=== PATIENT | female | born 1955 | race Caucasian/White ===

== ENCOUNTER 2018-03-31 12:25 | Outpatient (CLI) | payer OTHER ==
[2018-03-31 13:52] LABS: #Basophils 0.1 thou/uL (0.0-0.2); #Eosinphils 0.2 thou/uL (0.0-0.7); #Lymphocytes 3.2 thou/uL (1.20-3.40); #Neutrophils 4.8 thou/uL (1.40-6.50); %Basophils 0.9 % (0.0-1.0); %Eosinophils 2.2 % (0.0-10.0); %Lymphocytes 34.8 % (21.0-51.0); %Monocytes 10.3 % (0.0-10.0); %Neutrophils 51.9 % (42.0-75.0); Hemoglobin 14.1 g/dL (12.0-16.0); Mean Corpuscular HGB CONC 33.2 g/dL (32.0-36.0); Mean Corpuscular Volume 87.4 fL (78.0-98.0); Platelet Count 262 thou/uL (130-400); RBC Distribution Width 11.9 % (11.5-14.5); Red Blood Cell (RBC) Count 4.86 mill/uL (4.20-5.40); White Blood Cell (WBC) Count 9.3 thou/uL (4.8-10.8)
--- NOTE | 2018-03-31 14:14 | RAD ---
2 VIEWS CHEST: Date: 03/31/18 COMPARISON: None. HISTORY: Preoperative radiograph. FINDINGS: Two views of the chest show normal sized cardiomediastinal silhouette. There is no evidence of consol idation, mass, or pleural effusion. The bones are unremarkable. IMPRESSION: No evidence of acute cardiopulmonary disease. POS: [facility]
[2018-03-31 14:16] LABS: Anion Gap 12 mmol/L (10-20); BUN (Urea Nitrogen) 13 mg/dL (9.8-20.1); Calc. Creatinine Clearance 0 mL/min (70-130); Calcium 10.3 mg/dL (7.8-10.44); Carbon Dioxide 25 mmol/L (23-31); Chloride 109 mmol/L (98-107); Estimated GFR-MDRD 86; Glucose 132 mg/dL (80-115); Potassium 4.1 mmol/L (3.5-5.1); Sodium 142 mmol/L (136-145)
== END 2018-03-31 12:26 | disposition home or self-care (01) ==
LOC: LABBT 12:25
PROVIDERS: ATTEND Specialist
DX: Z01.818 Encounter for other preprocedural examination (principal); K42.9 Umbilical hernia without obstruction or gangrene
CPT/HCPCS: 71046; 80048; 85025; 93005; 93010

== ENCOUNTER 2018-04-06 07:41 | Day surgery (SDC) | payer OTHER ==
[2018-03-31 13:04] VITALS: BMI 32.7
[2018-04-06] MEDS ORDERED: Ketorolac Tromethamine 30 MG/ML VIAL ONE (08:12)
[2018-04-06] MEDS ORDERED: CEFAZOLIN/Water 2 GM/20 ML SYRINGE ONE (08:12)
[2018-04-06] MEDS ORDERED: Midazolam HCl 2 mg/2 ml Vial ONE (11:16)
[2018-04-06] MEDS ORDERED: Bupivacaine/Epinephrine 0.25% 30 ML VIAL ONE (11:18)
[2018-04-06] MEDS ORDERED: Fentanyl 100 MCG/2 ML VIAL ONE ×2 (11:25→12:45)
[2018-04-06] MEDS ORDERED: Famotidine/PF 20 mg/2ml Vial ONE (11:25)
[2018-04-06] MEDS ORDERED: PROPOFOL 200 MG/20 ML VIAL ONE (13:40)
[2018-04-06] MEDS ORDERED: Ondansetron HCl/PF 4 MG/2 ML Vial ONE (13:40)
[2018-04-06] MEDS ORDERED: Glycopyrrolate 0.2 MG/ML 5 ML SYRINGE ONE (13:40)
[2018-04-06] MEDS ORDERED: Metoclopramide HCl 10 MG/2 ML VIAL ONE (13:40)
[2018-04-06] MEDS ORDERED: Succinylcholine Chloride 20 MG/ML 10 ml SYRINGE FS ONE (13:40)
[2018-04-06] MEDS ORDERED: Lidocaine 1% PF 5 ML VIAL ONE (13:40)
[2018-04-06] MEDS ORDERED: HYDROcodone/Acetaminophen 5/325 mg Tablet ONE (14:59)
--- NOTE | 2018-04-07 04:02 | OP ---
DATE OF OPERATION: 04/06/2018 PREOPERATIVE DIAGNOSIS: Umbilical hernia. POSTOPERATIVE DIAGNOSIS: Umbilical hernia. OPERATION PERFORMED: Umbilical hernia repair with 4 cm Ventralex mesh patch. SURGEON: Mark Nicholas M.D. ANESTHESIA: General endotracheal. INDICATIONS: The patient is a 62-year-old white female. She presents with obvious visible umbilical hernia. This is reducible. She is taken to the operating room at this time for repair. DESCRIPTION OF OPERATION: Informed consent was obtained. The patient was taken to the operating tavares m where general anesthesia obtained with the patient in supine position. Abdomen was prepped with Ch loraPrep and draped in sterile fashion. Local anesthetic was infiltrated using 0.25% Marcaine with e pinephrine. Curvilinear infraumbilical incision was created and dissection was carried through skin and subcutaneous tissue down to the fascia. The umbilicus was dissected off the underlying fascia an d hernia sac and reflected superiorly. The hernia sac was dissected and excised. The fascia was dis sected on the anterior aspect and then the posterior aspect was dissected to clear the preperitoneal fat. A 4 cm Ventralex mesh patch was obtained and placed in the preperitoneal space. The straps wer e secured in place using interrupted sutures superiorly and inferiorly of 0 Prolene to the fascia. L ateral aspects were closed with interrupted sutures of 0 Prolene incorporating the anterior bites of the mesh. The umbilicus was then secured down to the fascia with 2 interrupted sutures of 3-0 Vicryl . The wound was closed in layers with 3-0 and 4-0 Monocryl. Dermabond was placed externally. A com pression dressing was applied using cotton balls and a Tegaderm in the usual fashion. There were no complications. The patient tolerated the procedure well. Blood loss was negligible. The patient to lerated the procedure well and was taken to recovery room in stable condition.
== END 2018-04-06 14:45 | disposition home or self-care (01) ==
LOC: SDC 07:41
PROVIDERS: ATTEND Specialist
PROC: 0WUF0JZ Supplement Abdominal Wall with Synthetic Substitute, Open Approach (ICD-10-PCS; principal; 2018-04-06)
DX: K42.9 Umbilical hernia without obstruction or gangrene (principal); E11.9 Type 2 diabetes mellitus without complications; E78.00 Pure hypercholesterolemia, unspecified; F17.210 Nicotine dependence, cigarettes, uncomplicated; Z79.84 Long term (current) use of oral hypoglycemic drugs; Z79.82 Long term (current) use of aspirin; Z79.899 Other long term (current) drug therapy
CPT/HCPCS: 36416; 96374; C1781; J0131; J1885; J2001; J2250; J2405; J2704; J2765; J3010; S0028

== ENCOUNTER 2023-04-25 10:02 | Inpatient (IN) | payer MEDICARE ==
[2023-04-25] MEDS ORDERED: Glucagon 1 MG/ML KIT IM PRN (11:21)
[2023-04-25] MEDS ORDERED: Dextrose 5% in Water 1,000 ML IV PRN (11:21)
[2023-04-25] MEDS ORDERED: Acetaminophen 325 MG TAB PO PRN (11:21)
[2023-04-25] MEDS ORDERED: Dextrose 50% Abboject 50 ML SYRINGE SLOW IVP PRN (11:21)
[2023-04-25] MEDS ORDERED: HumaLOG 300 UNITS/3 ML VIAL SC PRN (11:21)
[2023-04-25] MEDS ORDERED: Metoclopramide HCl 10 MG/2 ML VIAL IVP PRN (11:23)
[2023-04-25 11:25] VITALS: BMI 27.3
[2023-04-25] MEDS ORDERED: Electrolyte Replacement Protocol FS SCH (11:30)
[2023-04-25 11:53] LABS: #Basophils 0.1 thou/uL (0.0-0.2); #Monocytes 0.8 thou/uL (0.11-0.59); #Neutrophils 7.9 thou/uL (1.40-6.50); %Basophils 0.5 % (0.0-1.0); %Eosinophils 0.1 % (0.0-10.0); %Monocytes 6.7 % (0.0-10.0); Hematocrit 43.5 % (36.0-47.0); Hemoglobin 14.9 g/dL (12.0-16.0); Mean Corpuscular HGB CONC 34.3 g/dL (32.0-36.0); Mean Corpuscular Hemoglobin 30.3 pg (27.0-31.0); Mean Corpuscular Volume 88.4 fl (78.0-98.0); Mean Platelet Volume 10.3 fL (7.4-10.4); Platelet Count 266 10x3/uL (130-400); RBC Distribution Width 11.9 % (11.5-14.5); Red Blood Cell (RBC) Count 4.92 mill/uL (4.20-5.40); White Blood Cell (WBC) Count 11.6 10x3/uL (4.8-10.8)
[2023-04-25 12:01] LABS: ALT (SGPT) 11 U/L (8-55); AST (SGOT) 15 U/L (5-34); Albumin 3.7 g/dL (3.4-4.8); Alkaline Phosphatase 84 U/L (40-110); Anion Gap 13 mmol/L (10-20); BUN (Urea Nitrogen) 14 mg/dL (9.8-20.1); Bilirubin, Total 0.5 mg/dL (0.2-1.2); Calc. Creatinine Clearance 78 mL/min (70-130); Calcium 8.7 mg/dL (7.8-10.44); Carbon Dioxide 28 mmol/L (23-31); Chloride 92 mmol/L (98-107); Estimated GFR 69; Globulin 3.1 g/dL (2.4-3.5); Glucose 329 mg/dL (80-115); Phosphorus 3.5 mg/dL (2.3-4.7); Potassium 3.5 mmol/L (3.5-5.1); Protein, Total 6.8 g/dL (5.8-8.1); Sodium 129 mmol/L (136-145)
[2023-04-25] MEDS: HumaLOG 300 UNITS/3 ML VIAL SC PRN ×2 (12:45→17:22)
[2023-04-25] MEDS ORDERED: Potassium Chloride 20 MEQ TAB PO SCH (12:45)
[2023-04-25] MEDS ORDERED: Magnesium 2 GM/50 ML(in water) 2 GM in Premix Bag 1 BAG IVPB SCH (12:45)
[2023-04-25] MEDS ORDERED: Insulin Glargine 30 UNITS/0.3 ML VIAL SC SCH (13:15)
[2023-04-25] MEDS: NS 0.9% w/ 40 MEQ KCL 1,000 ML IV SCH (13:23)
[2023-04-26] MEDS: NS 0.9% w/ 40 MEQ KCL 1,000 ML IV SCH ×2 (00:18→11:04)
[2023-04-26 04:44] LABS: #Basophils 0.1 thou/uL (0.0-0.2); #Eosinphils 0.3 thou/uL (0.0-0.7); #Neutrophils 3.8 thou/uL (1.40-6.50); %Basophils 0.8 % (0.0-1.0); %Eosinophils 2.9 % (0.0-10.0); %Lymphocytes 40.2 % (21.0-51.0); %Neutrophils 43.6 % (42.0-75.0); Hematocrit 40.8 % (36.0-47.0); Hemoglobin 13.5 g/dL (12.0-16.0); Mean Corpuscular HGB CONC 33.1 g/dL (32.0-36.0); Mean Corpuscular Hemoglobin 29.9 pg (27.0-31.0); Mean Corpuscular Volume 90.5 fl (78.0-98.0); Mean Platelet Volume 9.7 fL (7.4-10.4); Platelet Count 223 10x3/uL (130-400); Red Blood Cell (RBC) Count 4.51 mill/uL (4.20-5.40); White Blood Cell (WBC) Count 8.7 10x3/uL (4.8-10.8)
[2023-04-26 05:10] LABS: Anion Gap 10 mmol/L (10-20); BUN (Urea Nitrogen) 12 mg/dL (9.8-20.1); Calc. Creatinine Clearance 94 mL/min (70-130); Calcium 8.3 mg/dL (7.8-10.44); Carbon Dioxide 28 mmol/L (23-31); Chloride 100 mmol/L (98-107); Estimated GFR 86; Glucose 250 mg/dL (80-115); Sodium 134 mmol/L (136-145)
[2023-04-26] MEDS: HumaLOG 300 UNITS/3 ML VIAL SC PRN ×3 (07:46→16:07)
[2023-04-26] MEDS: metFORMIN 500 MG TAB PO SCH ×2 (11:12→17:13)
[2023-04-26] MEDS ORDERED: Insulin Glargine 30 UNITS/0.3 ML VIAL SC SCH (11:15)
[2023-04-26] MEDS ORDERED: metFORMIN 500 MG TAB PO SCH (11:15)
[2023-04-26 11:17] VITALS: TEMP 98.5
[2023-04-26 16:48] VITALS: BP 132/80
== END 2023-04-26 18:02 | disposition home or self-care (01) | DRG 639 ==
LOC: 2NO 11:04
PROVIDERS: ADMIT Family Medicine; ATTEND Internal Medicine
DX: E11.69 Type 2 diabetes mellitus with other specified complication (principal); E86.0 Dehydration; E87.6 Hypokalemia; N17.9 Acute kidney failure, unspecified; F17.210 Nicotine dependence, cigarettes, uncomplicated; E66.9 Obesity, unspecified; Z83.3 Family history of diabetes mellitus; Z82.49 Family history of ischemic heart disease and other diseases of the circulatory system; Z68.27 Body mass index [BMI] 27.0-27.9, adult; Z90.710 Acquired absence of both cervix and uterus; Z98.890 Other specified postprocedural states
CPT/HCPCS: 36415; 36416; 80048; 83735; 84100; 85025; J1815; J3475; J3480